=== PATIENT | female | born 1965 | race Caucasian/White ===

== ENCOUNTER 2025-03-21 11:12 | Inpatient (IN) | payer MEDICARE, OTHER ==
[~2025-03-21] VITALS: Ht 160 cm; Wt 64.5 kg
[2025-03-21] VITALS (15 sets, daily range): BP systolic 113–141; BP diastolic 59–73
[2025-03-21] MEDS ORDERED: Lactated Ringer's 1,000 ML IV ONE ×2 (11:30→12:35)
[2025-03-21] MEDS ORDERED: Ventolin5 MG/1 ML INH (11:39)
[2025-03-21] MEDS ORDERED: DOTTI1 EA18 TOP (11:40)
[2025-03-21] MEDS ORDERED: DULERA 100 MCG/13 GM INH (11:40)
[2025-03-21] MEDS ORDERED: Nexium40 MG PO (11:40)
[2025-03-21] MEDS ORDERED: GABA800 PO (11:41)
[2025-03-21] MEDS ORDERED: JARDIANCE25 MG PO (11:41)
[2025-03-21] MEDS ORDERED: HYDSUL200 PO (11:41)
[2025-03-21] MEDS ORDERED: LAMO100 PO (11:42)
[2025-03-21] MEDS ORDERED: METF500C PO (11:42)
[2025-03-21] MEDS ORDERED: LEVSOD150 PO (11:42)
[2025-03-21] MEDS ORDERED: METO50ER PO (11:43)
[2025-03-21] MEDS ORDERED: MODA200 PO (11:43)
[2025-03-21] MEDS ORDERED: METO50 PO (11:43)
[2025-03-21] MEDS ORDERED: OXYC10TA19 PO (11:44)
[2025-03-21] MEDS ORDERED: SUDOGEST PO (11:45)
[2025-03-21] MEDS ORDERED: Ondansetron HCl 2 MG / ML 2ML Vial IV ONE (11:45)
[2025-03-21] MEDS ORDERED: VRAYLAR4.5 MG PO (11:46)
[2025-03-21 12:02] LABS: Calcium, Ionized (POC) 1.23 mmol/L (1.10-1.46); Chloride (POC) 100 mmol/L (98-108); Creatinine (POC) 0.6 mg/dL (0.6-1.0); Glucose (ISTAT POC) 123 mg/dL (70-99); Hemoglobin (POC) 15.6 g/dL (12.0-16.0); Potassium (POC) 3.4 mmol/L (3.5-5.5); Sodium (POC) 132 mmol/L (135-148); Total CO2 (POC) 11 mmol/L (21-32)
[2025-03-21 12:16] LABS: Base Excess Venous -21 mmol/L; PCO2 Venous 20.8 mmHg (38-42); pH Blood Venous 7.16 (7.34-7.37)
[2025-03-21] MEDS ORDERED: Ipratropium/Albuterol SulF 2.5-0.5MG/3 ML Amp INH ONE (12:25)
[2025-03-21 12:34] LABS: Source, Urine Clean Catch
[2025-03-21] MEDS ORDERED: CefTRIAXone Sodium 1,000 MG in NS 50 ML IV ONE (12:35)
[2025-03-21] MEDS ORDERED: Azithromycin 500 MG in NS 250 ML IV ONE (12:35)
[2025-03-21] MEDS ORDERED: Potassium Chloride 40 MEQ in NS 250 ML IV ONE ×2 (12:35→23:45)
[2025-03-21] MEDS ORDERED: Morphine Sulfate 4 MG/1 ML Injection IV ONE (12:35)
[2025-03-21 12:38] LABS: Appearance, Urine Clear (Clear); Bilirubin, Urine Neg (Neg); Blood, Urine Neg (Neg); Color, Urine Yellow (P-Yellow); Glucose Qualitative, Urine 4+ (Neg); Ketones, Urine 4+ (Neg); Leukocyte Esterase, Urine Neg (Neg); Nitrite, Urine Neg (Neg); Protein, Urine 2+ (Neg); Urobilinogen, Urine NORM (Normal)
[2025-03-21 12:43] LABS: Beta-hydroxybutyrate 89.7 mg/dL (0.2-2.8); Bun/Creatinine Ratio 19.3 (12.0-20.0); Calcium, Blood 9.8 mg/dL (8.5-10.1); Creatinine, Blood 0.62 mg/dL (0.40-1.00); Potassium, Blood 3.4 mmol/L (3.5-5.5)
[2025-03-21 12:46] LABS: Bacteria Few /hpf; Red Blood Cells, Urine 0-2 /hpf (0-2); Squamous Epithelial Cells Few /hpf (Few); White Blood Cells, Urine 0-2 /hpf (0-5)
[2025-03-21] MEDS ORDERED: D5W-1/2NS 1,000 ML IV SCH (13:45)
[2025-03-21] MEDS ORDERED: Albuterol 2.5 MG/3 ML VIAL INH PRN (13:50)
[2025-03-21] MEDS ORDERED: Ipratropium/Albuterol SulF 2.5-0.5MG/3 ML Amp INH SCH (13:50)
[2025-03-21] MEDS ORDERED: Insulin Human Regular 100 UNIT in NS 100 ML IV SCH (14:00)
[2025-03-21] MEDS ORDERED: LevoFLOXacin 750 MG/D5W 150ML 150 ML IV SCH (15:00)
--- NOTE | 2025-03-21 15:26 | NUR ---
ADMIT PT ARRIVES TO ICU 12 VIA ER BED AT 1445. PT IS AWAKE, ALERT, AND ORIENTED. PT DENIES PAIN OR DISCOMFORT AT THIS TIME. PT DENIES SOB AT THIS TIME. VITAL SIGNS STABLE, PT ON ROOM AIR. PT ORIENTED TO ROOM AND ABLE TO MAKE NEEDS KNOWN. PT WITH PIV'S IN PLACE WITH LR BOLUS AND KCL INFUSING. WILL CONTINUE TO MONITOR.
[2025-03-21] MEDS ORDERED: OxyCODONE HCL 5 MG TAB PO PRN (16:55)
[2025-03-21] MEDS ORDERED: Pseudoephedrine HCl 30 MG Tab PO PRN (17:15)
[2025-03-21] MEDS ORDERED: Nicotine 21 MG PATCH TOP SCH (17:15)
--- NOTE | 2025-03-21 17:18 | NUR ---
SHIFT SUMMARY NO ACUTE CHANGES SINCE ADMIT. SEE PREVIOUS NOTE. VITAL SIGNS STABLE. POWERGLIDE TO FRANCISCO J PLACED. D5 1/2 NS INFUSING AT 150 ML/HR. PT FAMILY AT BEDSIDE. PT ABLE TO MAKE NEEDS KNOWN. WILL CONTINUE TO MONITOR AND REPORT OFF TO ONCOMING RN.
[2025-03-21] MEDS ORDERED: Mometasone/Formoterol MDI 100/5 mcg 13 GM INH SCH (17:20)
[2025-03-21 17:45] LABS: Bun/Creatinine Ratio 14.8 (12.0-20.0); Calcium, Blood 8.7 mg/dL (8.5-10.1); Creatinine, Blood 0.54 mg/dL (0.40-1.00); Potassium, Blood 3.6 mmol/L (3.5-5.5)
[2025-03-21] MEDS ORDERED: Mag Sulfate 1 GM/D5% 100ML 100 ML IV STA (18:06)
--- NOTE | 2025-03-21 20:10 | NUR ---
Provider Notification: Spoke with Dr. Mixon on the phone, patient is requesting an order for her home medication of Vraylar (4.5mg PO Daily). Hospital does not carry this medication, it was suggested that the patient have someone bring in her home medication.
[2025-03-21] MEDS ORDERED: MethylPREDNISolone Sod Succ 40 MG VIAL IV SCH (21:00)
[2025-03-21] MEDS ORDERED: Gabapentin 400 MG Cap PO SCH (21:00)
[2025-03-21] MEDS ORDERED: LamoTRIgine 100 MG Tab PO SCH (21:00)
[2025-03-21] MEDS ORDERED: Lactobacil 2-S.Thermo-Bifido 1 1 Cap PO SCH (21:00)
--- NOTE | 2025-03-21 21:29 | NUR ---
PROVIDER NOTIFICATION: SPOKE WITH DR. ANTON ON THE PHONE ABOUT THE PLAN FOR TREATING THE DKA. PATIENT IS CURRENTLY ON D5 1/2 NS BUT THE INSULIN GTT IS NOT ON BECAUSE THE CBG IS TRENDING 100-130. DR. ANTON SAID HE WAS GOING TO LOOK INTO THIS AND GET BACK IN TOUCH LATER.
[2025-03-21 21:48] LABS: Bun/Creatinine Ratio 9.3 (12.0-20.0); Calcium, Blood 8.1 mg/dL (8.5-10.1); Creatinine, Blood 0.54 mg/dL (0.40-1.00); Potassium, Blood 3.5 mmol/L (3.5-5.5)
--- NOTE | 2025-03-21 23:18 | NUR ---
NOTIFIED DR SALAS CALLED REGARDING PT NOT BEING ON INSULIN GTT STILL. CURRENT BLOOD GLUCOSE 136. REPORTED POTASSIUM LEVEL AT 3.5. RECEIVE ORDER FOR KCL AND TO CONT TO HOLD INSULIN AT THIS TIME.
[2025-03-21] MEDS ORDERED: Potassium Chloride 10 Meq Tablet SA PO ONE (23:20)
[2025-03-22] VITALS (14 sets, daily range): BP systolic 120–151; BP diastolic 56–110
[2025-03-22 02:52] LABS: Bun/Creatinine Ratio 9.7 (12.0-20.0); Calcium, Blood 8.3 mg/dL (8.5-10.1); Creatinine, Blood 0.51 mg/dL (0.40-1.00); Potassium, Blood 4.8 mmol/L (3.5-5.5)
[2025-03-22] MEDS ORDERED: SODIUM PHOSPHATE IV SCH (03:15)
[2025-03-22] MEDS ORDERED: Sodium Phosphate 30 MM in Dextrose 5% 500 ML IV ONE (03:45)
[2025-03-22] MEDS ORDERED: Levothyroxine Sodium 0.15 MG Tab PO SCH (06:00)
[2025-03-22] MEDS ORDERED: Pantoprazole Sodium 40 MG Injection IV SCH (06:00)
--- NOTE | 2025-03-22 07:06 | NUR ---
SHIFT SUMMARY: PATIENT IS AOX4, AMBULATORY WITHOUT ASSIST AND PAIN IS CONTROLLED WITH PRN OXY FOR CHRONIC PAIN. ON RA WITH COARSE OVER DIM LS, PRODUCTIVE COUGH. MONITOR SHOWS NSR, 2/2 PULSES, BP STABLE. ABDOMEN IS SNT, ACTIVE BT. ADEQUATE UOP. SKIN IS BLANCHABLE AND INTACT. ACCESS IS PATENT AND INTACT. PAITNET IS DRIPS FOR INSULING, D5 1/2NS AND HAS RECIEVED ELETROLYTE REPLACEMENT. NO COMPLICATIONS OR EVENTS TO REPORT.
[2025-03-22 07:42] LABS: BASOPHILS ABSOLUTE AUTO 0.04 K/mm3 (0.00-0.23); BASOPHILS PERCENT AUTO 0 % (0-2); EOSINOPHILS ABSOLUTE AUTO 0.01 K/mm3 (0.00-0.68); EOSINOPHILS PERCENT AUTO 0 % (0-6); Hematocrit 34.4 % (33.0-51.0); Hemoglobin 11.8 g/dL (11.5-16.0); IMMATURE GRAN ABSOLUTE AUTO 0.34 K/mm3 (0.00-0.10); IMMATURE GRAN PERCENT AUTO 3 % (0-1); LYMPHOCYTES PERCENT AUTO 15 % (21-46); MONOCYTES ABSOLUTE AUTO 0.49 K/mm3 (0.16-1.47); MONOCYTES PERCENT AUTO 4 % (4-13); Mean Corpuscular HGB 30.3 pg (26.0-34.0); Mean Corpuscular HGB Conc 34.3 g/dL (31.5-36.5); Mean Corpuscular Volume 88 fL (80-100); Mean Platelet Volume 8.6 fL (9.1-12.4); NEUTROPHILS ABSOLUTE AUTO 9.37 K/mm3 (1.96-9.15); NEUTROPHILS PERCENT AUTO 78 % (41-73); Platelet Count 240 K/mm3 (150-400); RDW Coefficient Variation 13.2 % (11.7-14.2); RDW Standard Deviation 42.7 fL (35.1-46.3); White Blood Cell Count 12.05 K/mm3 (4.00-11.30)
[2025-03-22 08:22] LABS: Magnesium, Blood 1.8 mg/dL (1.6-2.4)
[2025-03-22 08:27] LABS: Albumin, Blood 2.9 g/dL (3.4-5.0); Albumin/Globulin Ratio 0.8 (0.8-1.8); Bilirubin, Total 0.3 mg/dL (0.1-1.0); Bun/Creatinine Ratio 8.3 (12.0-20.0); Calcium, Blood 8.7 mg/dL (8.5-10.1); Creatinine, Blood 0.48 mg/dL (0.40-1.00); Globulin, Blood 3.5 g/dL (2.2-4.0); Phosphorus, Blood 3.2 mg/dL (2.5-4.9); Potassium, Blood 3.7 mmol/L (3.5-5.5); Total Protein, Blood 6.4 g/dL (6.4-8.2)
[2025-03-22] MEDS ORDERED: Modafinil 200 MG Tab PO SCH (09:00)
[2025-03-22] MEDS ORDERED: Metoprolol Succinate 25 MG TABCR PO SCH (09:00)
[2025-03-22] MEDS ORDERED: Enoxaparin 40 MG/0.4 ML SYR SC SCH (09:00)
[2025-03-22] MEDS ORDERED: CefTRIAXone Sodium 1,000 MG in NS 100 ML IV SCH (12:00)
[2025-03-22 13:19] LABS: Bun/Creatinine Ratio 6.4 (12.0-20.0); Calcium, Blood 8.4 mg/dL (8.5-10.1); Creatinine, Blood 0.47 mg/dL (0.40-1.00); Potassium, Blood 3.8 mmol/L (3.5-5.5)
[2025-03-22 13:51] LABS: Adenovirus Not Detected (NOT DETECT); Coronavirus 229E Not Detected (NOT DETECT); Coronavirus HKU1 Not Detected (NOT DETECT); Coronavirus NL63 Not Detected (NOT DETECT); Coronavirus OC43 Not Detected (NOT DETECT); Human Metapneumovirus Not Detected (NOT DETECT); SARS-Cov-2 (COVID-19), BioFire Not Detected (NOT DETECT)
[2025-03-22 13:52] LABS: Bordetella pertussis Not Detected (NOT DETECT); Chlamydophila pneumoniae Not Detected (NOT DETECT); Human Rhinovirus/Enterovirus Detected (NOT DETECT); Influenza A/2009-H1 Not Detected (NOT DETECT); Influenza A/H1 Not Detected (NOT DETECT); Influenza A/H3 Not Detected (NOT DETECT); Influenza B Not Detected (NOT DETECT); Mycoplasma pneumoniae Not Detected (NOT DETECT); Parainfluenza Virus 1 Not Detected (NOT DETECT); Parainfluenza Virus 2 Not Detected (NOT DETECT); Parainfluenza Virus 3 Not Detected (NOT DETECT); Parainfluenza Virus 4 Not Detected (NOT DETECT); Respiratory Syncytial Virus Not Detected (NOT DETECT)
[2025-03-22 16:37] LABS: Bun/Creatinine Ratio 5.7 (12.0-20.0); Creatinine, Blood 0.52 mg/dL (0.40-1.00); Potassium, Blood 3.9 mmol/L (3.5-5.5)
--- NOTE | 2025-03-22 17:33 | NUR ---
SHIFT SUMMARY NO ACUTE CHANGES THIS SHIFT. PT HAS REMAINED AWAKE, ALERT, AND ORIENTED. PT MED PER EMAR FOR BACK AND LEG PAIN THIS SHIFT. PT HAS BEEN ABLE TO REPOSITION SELF IN BED INDEPENDENTLY AND GET UP TO BSC INDEPENDENTLY. INSULIN GTT INFUSING PER PROTOCOL AND D5 1/2 NS AT 150 ML/HR. PT DRINKING LARGE VOLUME OF WATER AND TOLERATING WELL. PT VOIDED LARGE AMOUNT OF CLEAR YELLOW URINE THIS SHIFT. PG AND PIV'S C/D/I. VITAL SIGNS STABLE. PT ON ROOM AIR. WILL CONTINUE TO MONITOR AND REPORT OFF TO ONCOMING RN.
[2025-03-22 20:53] LABS: Calcium, Blood 8.8 mg/dL (8.5-10.1); Creatinine, Blood 0.5 mg/dL (0.40-1.00); Potassium, Blood 3.4 mmol/L (3.5-5.5)
[2025-03-22] MEDS ORDERED: Potassium Chloride 10 Meq Tablet SA PO SCH (22:00)
--- NOTE | 2025-03-22 23:34 | NUR ---
PATIENT REPORT GIVEN TO THE MED-SURG UNIT RN AT 2330.
--- NOTE | 2025-03-22 23:58 | NUR ---
SHIFT SUMMARY: THE PATIENT IS ALERT AND ORIENTED, GCS 15 AND INDEPENDENT. EXT X4 INTACT, BLE NEUROPATHY. PAIN CONTROLLED WITH PRN PAIN MEDICATIONS. RA, NO SOA REPORTED. MONITOR SHOWS NSR, RATE OF 70-90, BP STABLE. ABDOMEN IS SNT, HYPO ACTIVE BT'S. CONTINENT OF BOWEL AND BLADDER. SKIN IS INTACT AND BLANCHABLE. ACCESS IS PATENT AND INTACT. INSULIN AND D5 1/2NS DC PER MD. SEE ORDER CHANGES. NO COMPLICATIONS OR EVENTS TO REPORT.
[2025-03-23 03:51] VITALS: BP 116/62
--- NOTE | 2025-03-23 05:31 | NUR ---
TRANSFER NOTE / RESEARCH SPECIALIST SUMMARY PT TRANSFERRED FROM ICU TO MEDICAL FLOOR. NO ACUTE EVENTS T/O THE REMAINDER OF SHIFT. TELEMETRY IN PLACE: SR 70'S-90'S. PT CBG 157 AT 0004. SNACK GIVEN TO PT. MEDICATED PER EMAR ORDERS FOR LOW BACK PAIN ; EFFECTIVE. BED IN LOWEST POSITION. CARES ONGOING ORDERED. INDEPENDENT IN ROOM.
[2025-03-23 07:24] LABS: BASOPHILS ABSOLUTE AUTO 0.05 K/mm3 (0.00-0.23); BASOPHILS PERCENT AUTO 0 % (0-2); EOSINOPHILS ABSOLUTE AUTO 0.01 K/mm3 (0.00-0.68); EOSINOPHILS PERCENT AUTO 0 % (0-6); Hematocrit 34.5 % (33.0-51.0); Hemoglobin 11.7 g/dL (11.5-16.0); IMMATURE GRAN ABSOLUTE AUTO 0.32 K/mm3 (0.00-0.10); IMMATURE GRAN PERCENT AUTO 2 % (0-1); LYMPHOCYTES ABSOLUTE AUTO 2.51 K/mm3 (0.84-5.20); LYMPHOCYTES PERCENT AUTO 19 % (21-46); MONOCYTES ABSOLUTE AUTO 0.62 K/mm3 (0.16-1.47); MONOCYTES PERCENT AUTO 5 % (4-13); Mean Corpuscular HGB 29.8 pg (26.0-34.0); Mean Corpuscular HGB Conc 33.9 g/dL (31.5-36.5); Mean Corpuscular Volume 88 fL (80-100); Mean Platelet Volume 8.6 fL (9.1-12.4); NEUTROPHILS ABSOLUTE AUTO 9.71 K/mm3 (1.96-9.15); NEUTROPHILS PERCENT AUTO 73 % (41-73); Platelet Count 266 K/mm3 (150-400); RDW Coefficient Variation 13.4 % (11.7-14.2); RDW Standard Deviation 43.5 fL (35.1-46.3); Red Blood Cell Count 3.92 M/mm3 (3.80-5.20); White Blood Cell Count 13.22 K/mm3 (4.00-11.30)
[2025-03-23] MEDS ORDERED: Insulin Regular 100 UNIT/ML 10ML Vial SC SCH (07:30)
[2025-03-23 07:36] VITALS: BP 107/59
[2025-03-23 07:42] LABS: Albumin, Blood 2.8 g/dL (3.4-5.0); Albumin/Globulin Ratio 0.8 (0.8-1.8); Bilirubin, Total 0.2 mg/dL (0.1-1.0); Bun/Creatinine Ratio 16.2 (12.0-20.0); Calcium, Blood 8.8 mg/dL (8.5-10.1); Creatinine, Blood 0.49 mg/dL (0.40-1.00); Globulin, Blood 3.4 g/dL (2.2-4.0); Potassium, Blood 3.9 mmol/L (3.5-5.5); Total Protein, Blood 6.2 g/dL (6.4-8.2)
[2025-03-23] MEDS ORDERED: Doxycycline Hyclate 100 MG TAB PO SCH (09:00)
[2025-03-23] MEDS ORDERED: CARIPRAZINE 4.5 MG PO SCH ×2 (09:00→21:00)
[2025-03-23] MEDS ORDERED: PredniSONE 20 MG Tab PO SCH (09:00)
[2025-03-23] MEDS ORDERED: Fluconazole 100 MG Tab PO ONE (11:15)
[2025-03-23] MEDS ORDERED: DOXY100 PO (12:41)
[2025-03-23] MEDS ORDERED: NICO21TP TOP (12:41)
--- NOTE | 2025-03-23 13:17 | NUR ---
assumed care of pt. a/o x 4 on iso for rhino, no c/o pain no distress and is hoping to go home today awaiting for Dr Cuadra. multiple ivs in place power glide to left arm. call light within reach makes needs known.
--- NOTE | 2025-03-23 13:19 | NUR ---
discharge orders given. tele dced pt requested medication for yeast infection. ivs dced so pt can shower. pt ate lunch and discharges orders given. pt refuse wheelchair and wanted to walk out because she was driving self home.
== END 2025-03-23 13:15 | disposition home or self-care (01) | DRG 871 ==
LOC: ER 11:12 → ERHOLD 13:45 → ICUE 13:45 → MEDS 03-22 23:49
PROVIDERS: Student in an Organized Health Care Education/Training Program; ADMIT Internal Medicine
DX: A41.89 Other specified sepsis (principal); E11.10 Type 2 diabetes mellitus with ketoacidosis without coma; J18.9 Pneumonia, unspecified organism; J44.0 Chronic obstructive pulmonary disease with (acute) lower respiratory infection; J44.1 Chronic obstructive pulmonary disease with (acute) exacerbation; F17.210 Nicotine dependence, cigarettes, uncomplicated; I10 Essential (primary) hypertension; Z71.6 Tobacco abuse counseling; F32.A Depression, unspecified; M32.9 Systemic lupus erythematosus, unspecified; B97.89 Other viral agents as the cause of diseases classified elsewhere; Z88.8 Allergy status to other drugs, medicaments and biological substances; Z88.6 Allergy status to analgesic agent; Z88.0 Allergy status to penicillin; Z88.2 Allergy status to sulfonamides; Z79.890 Hormone replacement therapy; Z79.84 Long term (current) use of oral hypoglycemic drugs; Z79.899 Other long term (current) drug therapy
CPT/HCPCS: 0202U; 36415; 71260; 80047; 80048; 80053; 81001; 82010; 82803; 82947; 83605; 83735; 84100; 85014; 85025; 87040; 93005; 93010; 94640; 94664; 94760; 94762; 96361; 96365; 96368; 96375; 99285-25; A9270; C1751; J0456; J0696; J1650; J1815; J1956; J2270; J2405; J2470; J2919; J3475; J3480; J7042; J7050; J7060; J7120; J7512; Q9967

== ENCOUNTER → 2025-03-21 | Outpatient (CLI) | payer MEDICARE, OTHER ==
[~2025-03-21] MED LIST: DOTTI1 EA18 TOP; DOXY100 PO; DULERA 100 MCG/13 GM INH; GABA800 PO; HYDSUL200 PO; JARDIANCE25 MG PO; LAMO100 PO; LEVSOD150 PO; METF500C PO; METO50 PO; METO50ER PO; MODA200 PO; NICO21TP TOP; Nexium40 MG PO; OXYC10TA19 PO; SUDOGEST PO; VRAYLAR4.5 MG PO; Ventolin5 MG/1 ML INH
[2025-03-21 10:26] LABS: BASOPHILS ABSOLUTE AUTO 0.16 K/mm3 (0.00-0.23); BASOPHILS PERCENT AUTO 1 % (0-2); EOSINOPHILS PERCENT AUTO 0 % (0-6); Hematocrit 45.9 % (33.0-51.0); Hemoglobin 15.2 g/dL (11.5-16.0); IMMATURE GRAN ABSOLUTE AUTO 0.84 K/mm3 (0.00-0.10); IMMATURE GRAN PERCENT AUTO 4 % (0-1); LYMPHOCYTES ABSOLUTE AUTO 1.79 K/mm3 (0.84-5.20); LYMPHOCYTES PERCENT AUTO 8 % (21-46); MONOCYTES ABSOLUTE AUTO 1.05 K/mm3 (0.16-1.47); MONOCYTES PERCENT AUTO 5 % (4-13); Mean Corpuscular HGB 30.3 pg (26.0-34.0); Mean Corpuscular HGB Conc 33.1 g/dL (31.5-36.5); Mean Corpuscular Volume 92 fL (80-100); Mean Platelet Volume 8.9 fL (9.1-12.4); NEUTROPHILS ABSOLUTE AUTO 19.58 K/mm3 (1.96-9.15); NEUTROPHILS PERCENT AUTO 84 % (41-73); Platelet Count 337 K/mm3 (150-400); RDW Coefficient Variation 13.1 % (11.7-14.2); RDW Standard Deviation 43.9 fL (35.1-46.3); Red Blood Cell Count 5.01 M/mm3 (3.80-5.20); White Blood Cell Count 23.42 K/mm3 (4.00-11.30)
[2025-03-21 10:30] LABS: Albumin, Blood 3.9 g/dL (3.4-5.0); Albumin/Globulin Ratio 0.8 (0.8-1.8); Bilirubin, Total 0.6 mg/dL (0.1-1.0); Bun/Creatinine Ratio 11.7 (12.0-20.0); Calcium, Blood 10.1 mg/dL (8.5-10.1); Creatinine, Blood 1.03 mg/dL (0.40-1.00); Potassium, Blood 3.3 mmol/L (3.5-5.5); Total Protein, Blood 8.9 g/dL (6.4-8.2)
[2025-03-29 11:10] LABS: BASOPHILS ABSOLUTE AUTO 0.05 K/mm3 (0.00-0.23); BASOPHILS PERCENT AUTO 0 % (0-2); EOSINOPHILS ABSOLUTE AUTO 0.02 K/mm3 (0.00-0.68); EOSINOPHILS PERCENT AUTO 0 % (0-6); Hematocrit 41.6 % (33.0-51.0); Hemoglobin 14.3 g/dL (11.5-16.0); IMMATURE GRAN ABSOLUTE AUTO 0.16 K/mm3 (0.00-0.10); IMMATURE GRAN PERCENT AUTO 1 % (0-1); LYMPHOCYTES ABSOLUTE AUTO 3.13 K/mm3 (0.84-5.20); LYMPHOCYTES PERCENT AUTO 27 % (21-46); MONOCYTES ABSOLUTE AUTO 0.69 K/mm3 (0.16-1.47); MONOCYTES PERCENT AUTO 6 % (4-13); Mean Corpuscular HGB 30.3 pg (26.0-34.0); Mean Corpuscular HGB Conc 34.4 g/dL (31.5-36.5); Mean Corpuscular Volume 88 fL (80-100); Mean Platelet Volume 8.6 fL (9.1-12.4); NEUTROPHILS ABSOLUTE AUTO 7.71 K/mm3 (1.96-9.15); NEUTROPHILS PERCENT AUTO 66 % (41-73); Platelet Count 262 K/mm3 (150-400); RDW Coefficient Variation 13.2 % (11.7-14.2); RDW Standard Deviation 41.6 fL (35.1-46.3); Red Blood Cell Count 4.72 M/mm3 (3.80-5.20); White Blood Cell Count 11.76 K/mm3 (4.00-11.30)
[2025-03-29 11:20] LABS: Albumin, Blood 3.6 g/dL (3.4-5.0); Bilirubin, Total 0.3 mg/dL (0.1-1.0); Bun/Creatinine Ratio 6.1 (12.0-20.0); Calcium, Blood 9.5 mg/dL (8.5-10.1); Creatinine, Blood 0.66 mg/dL (0.40-1.00); Globulin, Blood 3.5 g/dL (2.2-4.0); Potassium, Blood 3.7 mmol/L (3.5-5.5); Total Protein, Blood 7.1 g/dL (6.4-8.2)
== END ==
LOC: LAB SHORT 10:15 → LAB 10:15
PROVIDERS: Physician Assistant
DX: R00.0 Tachycardia, unspecified (principal)
CPT/HCPCS: 80053; 83880; 84484; 85025; 85379